=== PATIENT | female | born 1985 | race Caucasian/White ===

== ENCOUNTER 2024-10-10 10:20 | Emergency (ER) | payer BC ==
[~2024-10-10] VITALS: Ht 160 cm; Wt 133.7 kg
[2024-10-10 10:33] VITALS: TEMP 97.9
[2024-10-10 11:23] LABS: BASOPHILS # (AUTO) 0.1 X10'3 (0-0.2); BASOPHILS % (AUTO) 1.1 % (0-1); EOSINOPHILS # (AUTO) 0.1 X10'3 (0-0.9); HEMATOCRIT 47.9 % (35.0-45.0); HEMOGLOBIN 16.3 g/dl (12.0-16.0); LYMPHOCYTES # (AUTO) 3.2 X10'3 (1.1-4.8); LYMPHOCYTES % (AUTO) 33.7 % (21-51); MEAN CORPUSCULAR HEMOGLOBIN 29.8 PG (27.0-31.0); MEAN CORPUSCULAR HGB CONC 34.1 g/dL (33.0-36.5); MEAN CORPUSCULAR VOLUME 87.4 FL (78-98); MEAN PLATELET VOLUME 7.9 FL (7.4-10.4); MONOCYTES # (AUTO) 0.9 X10'3 (0-0.9); NEUTROPHILS # (AUTO) 5.2 X10'3 (1.8-7.7); NEUTROPHILS % (AUTO) 54.2 % (42-75); PLATELET COUNT 419 X10'3 (140-440); RED BLOOD COUNT 5.48 X10'6 (4.20-5.60); WHITE BLOOD COUNT 9.5 X10'3 (4.5-11.0)
[2024-10-10 11:35] LABS: ALANINE AMINOTRANSFERASE 81 U/L (12-78); ALBUMIN/GLOBULIN RATIO 1.1 (1.1-1.5); ALKALINE PHOSPHATASE 81 IU/L (46-116); ANION GAP 11 (8-16); ASPARTATE AMINO TRANSFERASE 42 U/L (10-37); BILIRUBIN,TOTAL 0.6 MG/DL (0.1-1.0); BLOOD UREA NITROGEN 10 MG/DL (7-18); BUN/CREATININE RATIO 11.1 (10.0-20.0); CALCIUM 9.2 MG/DL (8.5-10.1); CHLORIDE 103 MMOL/L (99-107); GLUCOSE 106 MG/DL (70-104); POTASSIUM 3.2 MMOL/L (3.5-5.1); SODIUM 138 MMOL/L (135-145); TOTAL CARBON DIOXIDE 24.2 MMOL/L (24-32); TOTAL PROTEIN 7.7 G/DL (6.4-8.2); eCRCL 71 ML/MIN; eGFR 70 ML/MIN
[2024-10-10 11:41] LABS: PRO BRAIN NATRIURETIC PEPTIDE 91 PG/ML (0-125)
[2024-10-10 13:55] LABS: BILIRUBIN,URINE SMALL (Neg); COLOR,URINE YELLOW (Yellow); GLUCOSE, URINE NEGATIVE (Neg); KETONES,URINE 40 mg/dl (Neg); LEUKOCYTE ESTERASE ,URINE NEGATIVE (Neg); NITRITES, URINE NEGATIVE (Neg); OCCULT BLOOD,URINE NEGATIVE (Neg); PROTEIN,URINE TRACE mg/dl (Neg); UROBILINOGEN,URINE 0.2 E.U/dL (0.2-1.0)
[2024-10-10 14:02] LABS: CLARITY,URINE SLIGHTLY CLOUDY (Clear); UA COLLECTION TYPE CLN CATCH MIDSTREAM
[2024-10-10 14:03] LABS: MUCUS STRANDS FEW /LPF (Neg); RBC,URINE NONE SEEN /HPF (0-2); SQUAMOUS EPITHELIAL CELL,UR MANY /LPF (FEW); URINE HCG NEGATIVE (NEG)
[2024-10-10 14:04] LABS: BACTERIA,URINE 3+ /HPF (Neg)
[2024-10-10] MEDS: diphenhydrAMINE 50 mg/ml inj IV ONE (16:41)
[2024-10-10] MEDS: metoclopramide 5 mg/ml inj IV ONE (16:42)
[2024-10-10] MEDS: potassium Cl 20 mEq SR tablet PO STA (16:42)
[2024-10-10 16:48] VITALS: BP 144/91; PULSE 89; RESP 20; O2SAT 96
== END 2024-10-10 16:52 | disposition home or self-care (01) ==
LOC: ER 10:22
DX: R07.89 Other chest pain (principal); R10.13 Epigastric pain
CPT/HCPCS: 36415; 74176; 80053; 81001; 81025; 83880; 84484; 85025; 93005; 99284